=== PATIENT | male | born 1950 | race African-American/Black ===

== ENCOUNTER 2018-06-13 05:46 | Inpatient (IN) | payer MEDICARE, OTHER ==
[~2018-06-13] VITALS: Ht 177.8 cm; Wt 57.6 kg
[~2018-06-13 05:46] MED LIST: AMLODIPINE BESY10 MG ORAL; IBUPROFEN600 MG ORAL; METOPROLOL SUCC25 MG ORAL; VICODIN 5-5001 EACH PO; ZOCOR10 MG ORAL
[2018-06-13 05:50] VITALS: BP 98/70
[2018-06-13] MEDS ORDERED: Morphine Sulfate 2mg/ml Inj IVP ONE (06:00)
[2018-06-13] MEDS ORDERED: Sodium Chloride 500ML 500 ML IV ONE (06:00)
--- NOTE | 2018-06-13 06:02 | Emergency Room Report ---
History of Present Illness General Chief Complaint: Pain Source: Patient (Bronson Garnett DO) Present Illness HPI Patient presents by paramedics for report of left hip pain reports that he had a fall Yesterday afternoon at approximate 5:00 He reports that he was trying to contact someone for help however He was not able to do so until this morning Denies any chest pain denies any palpitation Denies any other weakness prior to the fall And provides a mechanical description of the fall Pain is worse with movement 8 out of 10 denies any back pain or head trauma (DesiBronson archer DO) Allergies: Coded Allergies: SHELLFISH DERIVED (Unverified Allergy, Unknown, 06/14/18) Uncoded Allergies: SHELLFISH (Allergy, Unknown, 06/13/18) Patient History Past Medical History: see triage record Pertinent Family History: none Reviewed Nursing Documentation: PMH: Agreed; PSxH: Agreed (Bronson Garnett DO) Nursing Documentation-PMH Past Medical History: No Stated History Hx Hypertension: Yes (DesieverardoBronson CRAWFORD) Review of Systems All Other Systems: negative except mentioned in HPI (Bronson Garnett DO) Physical Exam Vital Signs Date Time Temp Pulse Resp B/P (MAP) Pulse Ox O2 Delivery O2 Flow Rate FiO2 06/13/18 05:36 97.9 89 18 94/70 98 Room Air Sp02 EP Interpretation: reviewed, normal General Appearance: well appearing, no apparent distress Head: normocephalic, atraumatic Eyes: bilateral eye PERRL, bilateral eye EOMI ENT: hearing grossly normal, normal pharynx, TMs + canals normal, uvula midline Neck: full range of motion, supple, no meningismus, no bony tend Respiratory: lungs clear, normal breath sounds, no rhonchi, no respiratory distress, no retraction, no accessory muscle use Cardiovascular #1: normal peripheral pulses, regular rate, rhythm, no edema, no gallop, no JVD, no murmur Gastrointestinal: normal bowel sounds, non tender, soft, no mass, no organomegaly, non-distended, no guarding, no hernia, no pulsatile mass, no rebound Genitourinary: no CVA tenderness Musculoskeletal: other - Tender on palpation of the left hip area, not able to fully extend the hip secondary to pain Neurologic: oriented x3, responsive, 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 as tested, sensory intact Psychiatric: mood/affect normal Skin: normal color, no rash, warm/dry, palpation normal Lymphatic: normal inspection, no adenopathy (Bronson Garnett DO) Medical Decision Making Diagnostic Impression: Primary Impression: Hip fracture, left Qualified Codes: S72.002A - Fracture of unspecified part of neck of left femur , initial encounter for closed fracture ER Course Given the patient's history and presentation imaging study is obtained Patient also had extensive blood work Patient shows a complex left-sided hip fracture Further medically evaluated as well with cardiac evaluation Blood work is appropriate Patient has pain management Will be admitted for further inpatient care Orthopedics and medicine contacted Labs Test 06/13/18 08:05 06/14/18 06:30 06/14/18 09:56 White Blood Count 11.6 K/UL (4.8-10.8) 8.2 K/UL (4.8-10.8) Red Blood Count 3.62 M/UL (4.70-6.10) 3.17 M/UL (4.70-6.10) Hemoglobin 11.6 G/DL (14.2-18.0) 10.1 G/DL (14.2-18.0) Hematocrit 36.0 % (42.0-52.0) 31.1 % (42.0-52.0) Mean Corpuscular Volume 99 FL (80-99) 98 FL (80-99) Mean Corpuscular Hemoglobin 32.1 PG (27.0-31.0) 31.8 PG (27.0-31.0) Mean Corpuscular Hemoglobin Concent 32.2 G/DL (32.0-36.0) 32.4 G/DL (32.0-36.0) Red Cell Distribution Width 12.9 % (11.6-14.8) 12.5 % (11.6-14.8) Platelet Count 238 K/UL (150-450) 214 K/UL (150-450) Mean Platelet Volume 5.8 FL (6.5-10.1) 5.8 FL (6.5-10.1) Neutrophils (%) (Auto) 79.4 % (45.0-75.0) 71.4 % (45.0-75.0) Lymphocytes (%) (Auto) 11.2 % (20.0-45.0) 16.8 % (20.0-45.0) Monocytes (%) (Auto) 7.8 % (1.0-10.0) 9.7 % (1.0-10.0) Eosinophils (%) (Auto) 0.0 % (0.0-3.0) 0.9 % (0.0-3.0) Basophils (%) (Auto) 1.6 % (0.0-2.0) 1.2 % (0.0-2.0) Sodium Level 143 MMOL/L (136-145) 131 MMOL/L (136-145) Potassium Level 4.2 MMOL/L (3.5-5.1) 4.2 MMOL/L (3.5-5.1) Chloride Level 106 MMOL/L (98-107) 101 MMOL/L (98-107) Carbon Dioxide Level 21 MMOL/L (21-32) 25 MMOL/L (21-32) Anion Gap 16 mmol/L (5-15) 6 mmol/L (5-15) Blood Urea Nitrogen 19 mg/dL (7-18) 17 mg/dL (7-18) Creatinine 1.0 MG/DL (0.55-1.30) 0.9 MG/DL (0.55-1.30) Estimat Glomerular Filtration Rate > 60 mL/min (>60) > 60 mL/min (>60) Glucose Level 81 MG/DL (74-106) 85 MG/DL (74-106) Calcium Level 8.4 MG/DL (8.5-10.1) 8.2 MG/DL (8.5-10.1) Total Bilirubin 0.3 MG/DL (0.2-1.0) Aspartate Amino Transf (AST/SGOT) 22 U/L (15-37) Alanine Aminotransferase (ALT/SGPT) 20 U/L (12-78) Alkaline Phosphatase 52 U/L (46-116) Total Creatine Kinase 259 U/L (26-308) Creatine Kinase MB 1.2 NG/ML (0.0-3.6) Creatine Kinase MB Relative Index 0.4 Total Protein 6.2 G/DL (6.4-8.2) Albumin 2.2 G/DL (3.4-5.0) Globulin 4.0 g/dL Albumin/Globulin Ratio 0.6 (1.0-2.7) Prothrombin Time 9.9 SEC (9.30-11.50) Prothromb Time International Ratio 0.9 (0.9-1.1) Magnesium Level 1.7 MG/DL (1.8-2.4) Arterial Blood pH 7.460 (7.350-7.450) Arterial Blood Partial Pressure CO2 33.6 mmHg (35.0-45.0) Arterial Blood Partial Pressure O2 68.7 mmHg (75.0-100.0) Arterial Blood HCO3 23.6 mmol/L (22.0-26.0) Arterial Blood Oxygen Saturation 94.3 % (95-100) Arterial Blood Base Excess 0.2 (-2-2) Иван Test Positive (Bronson Garnett DO) ER Course Please see above note. Patient with IT hip fx. Still c/o pain. Analgesia repeated. Pain improved with fentanyl. EKG and labs reviewed. Discussed diagnosis, admission and plan for surgery Laboratory Tests Test 06/13/18 08:05 06/14/18 06:30 White Blood Count 11.6 K/UL (4.8-10.8) H 8.2 K/UL (4.8-10.8) Red Blood Count 3.62 M/UL (4.70-6.10) L 3.17 M/UL (4.70-6.10) L Hemoglobin 11.6 G/DL (14.2-18.0) L 10.1 G/DL (14.2-18.0) L Hematocrit 36.0 % (42.0-52.0) L 31.1 % (42.0-52.0) L Mean Corpuscular Volume 99 FL (80-99) 98 FL (80-99) Mean Corpuscular Hemoglobin 32.1 PG (27.0-31.0) H 31.8 PG (27.0-31.0) H Mean Corpuscular Hemoglobin Concent 32.2 G/DL (32.0-36.0) 32.4 G/DL (32.0-36.0) Red Cell Distribution Width 12.9 % (11.6-14.8) 12.5 % (11.6-14.8) Platelet Count 238 K/UL (150-450) 214 K/UL (150-450) Mean Platelet Volume 5.8 FL (6.5-10.1) L 5.8 FL (6.5-10.1) L Neutrophils (%) (Auto) 79.4 % (45.0-75.0) H 71.4 % (45.0-75.0) Lymphocytes (%) (Auto) 11.2 % (20.0-45.0) L 16.8 % (20.0-45.0) L Monocytes (%) (Auto) 7.8 % (1.0-10.0) 9.7 % (1.0-10.0) Eosinophils (%) (Auto) 0.0 % (0.0-3.0) 0.9 % (0.0-3.0) Basophils (%) (Auto) 1.6 % (0.0-2.0) 1.2 % (0.0-2.0) Sodium Level 143 MMOL/L (136-145) 131 MMOL/L (136-145) #L Potassium Level 4.2 MMOL/L (3.5-5.1) 4.2 MMOL/L (3.5-5.1) Chloride Level 106 MMOL/L (98-107) 101 MMOL/L (98-107) Carbon Dioxide Level 21 MMOL/L (21-32) 25 MMOL/L (21-32) Anion Gap 16 mmol/L (5-15) H 6 mmol/L (5-15) Blood Urea Nitrogen 19 mg/dL (7-18) H 17 mg/dL (7-18) Creatinine 1.0 MG/DL (0.55-1.30) 0.9 MG/DL (0.55-1.30) Estimate Glomerular Filtration Rate > 60 mL/min (>60) > 60 mL/min (>60) Glucose Level 81 MG/DL (74-106) 85 MG/DL (74-106) Calcium Level 8.4 MG/DL (8.5-10.1) L 8.2 MG/DL (8.5-10.1) L Total Bilirubin 0.3 MG/DL (0.2-1.0) Aspartate Amino Transferase (AST) 22 U/L (15-37) Alanine Aminotransferase (ALT) 20 U/L (12-78) Alkaline Phosphatase 52 U/L (46-116) Total Creatine Kinase 259 U/L (26-308) Creatine Kinase MB 1.2 NG/ML (0.0-3.6) Creatine Kinase MB Relative Index 0.4 Total Protein 6.2 G/DL (6.4-8.2) L Albumin 2.2 G/DL (3.4-5.0) L Globulin 4.0 g/dL Albumin/Globulin Ratio 0.6 (1.0-2.7) L Prothrombin Time 9.9 SEC (9.30-11.50) Prothrombin Time INR 0.9 (0.9-1.1) Magnesium Level 1.7 MG/DL (1.8-2.4) L (Davonte Tilley MD) EKG Diagnostic Results Rate: tachycardiac ST Segments: no acute changes (Davonte Tilley MD) Rhythm Strip Diag. Results EP Interpretation: yes Rate: 78 Rhythm: NSR, no PVC's, no ectopy (Bronson Garnett DO) EP Interpretation: yes Rhythm: no PVC's, no ectopy, other - Sinus tachycardia (Davonte Tilley MD) CT/MRI/US Diagnostic Results CT/MRI/US Diagnostic Results : Impression CT pelvicIMPRESSION: Comminuted impacted and displaced left intertrochanteric fracture. No dislocation. Soft tissue swelling/stranding about the outer hips bilaterally. Focal fluid collection in the subcutaneous region of the outer right hip, nonspecific. This may reflect evolving hematoma. Developing abscess difficult to entirely exclude in the appropriate clinical setting. Recommend clinical correlation and follow-up. (Bronson Garnett DO) Last Vital Signs Date Time Temp Pulse Resp B/P (MAP) Pulse Ox O2 Delivery O2 Flow Rate FiO2 06/13/18 05:36 97.9 89 18 94/70 98 Room Air Status: improved (Bronson Garnett DO) Status: improved (Davonte Tilley MD) Disposition: ADMITTED INPATIENT Condition: Serious Bronson Garnett DO Jun 13, 2018 06:02 Davonte Tilley MD Jun 13, 2018 07:16
[2018-06-13] MEDS ORDERED: Morphine Sulfate 4mg/ml Inj (IV/IM USE ONLY) IVP ONE (07:15)
[2018-06-13] MEDS ORDERED: fentaNYL 100 mcg/2 mL IV ONE (07:45)
--- NOTE | 2018-06-13 07:53 | Diagnostic Imaging Report ---
EXAM: CT Pelvis Without Intravenous Contrast CLINICAL HISTORY: PAIN TECHNIQUE: Axial computed tomography images of the pelvis without intravenous contrast. CTDI is 11.77 mGy and DLP is 320 mGy-cm. One or more of the following dose reduction techniques were used: automated exposure control, adjustment of the mA and/or kV according to patient size, use of iterative reconstruction technique. COMPARISON: No relevant prior studies available. FINDINGS: Bowel: Moderate retained stool in the rectum. Diverticulosis in the visualized sigmoid colon. No obstruction. No mucosal thickening. Appendix: No findings to suggest acute appendicitis. Intraperitoneal space: Unremarkable. No free air. No significant fluid collection. Bladder: Unremarkable. No stones. Reproductive: Unremarkable as visualized. Bones/joints: Comminuted impacted left intertrochanteric fracture with mild superior displacement. No dislocation. Narrowing of the hip joints bilaterally, right worse than left with marginal osteophyte formation. Degenerative changes in the visualized lower lumbar spine with disc space narrowing and endplate changes at L5-S1. Soft tissues: Small fat-containing inguinal hernia, left greater than right. Soft tissue stranding in the outer aspect of both hips likely soft tissue swelling. No discrete low density in the subcutaneous fat over the outer right hip which may reflect focal evolving hematoma. Recommend clinical correlation and follow-up to exclude developing fluid collection/abscess. Vasculature: Heavily calcified distal aorta and common iliac arteries. No lower abdominal aortic aneurysm. Lymph nodes: Unremarkable. No enlarged lymph nodes. IMPRESSION: Comminuted impacted and displaced left intertrochanteric fracture. No dislocation. Soft tissue swelling/stranding about the outer hips bilaterally. Focal fluid collection in the subcutaneous region of the outer right hip, nonspecific. This may reflect evolving hematoma. Developing abscess difficult to entirely exclude in the appropriate clinical setting. Recommend clinical correlation and follow-up.
[2018-06-13 08:00] VITALS: BP 116/75
[2018-06-13] MEDS ORDERED: PRINIVIL10 MG ORAL (08:18)
[2018-06-13] MEDS ORDERED: ASPIRIN-LOW81 MG ORAL (08:18)
[2018-06-13] MEDS ORDERED: MAGNESIUM OXID400 M1 ORAL (08:18)
[2018-06-13] MEDS ORDERED: ATORVASTATIN CA20 MG ORAL (08:18)
[2018-06-13 08:42] LABS: BASOPHILS % (AUTO) 1.6 % (0.0-2.0); HEMOGLOBIN 11.6 G/DL (14.2-18.0); LYMPHOCYTES % (AUTO) 11.2 % (20.0-45.0); MEAN CORPUSCULAR VOLUME 99 FL (80-99); MONOCYTES % (AUTO) 7.8 % (1.0-10.0); NEUTROPHILS % (AUTO) 79.4 % (45.0-75.0); PLATELET COUNT 238 K/UL (150-450); RED BLOOD COUNT 3.62 M/UL (4.70-6.10); RED CELL DISTRIBUTION WIDTH 12.9 % (11.6-14.8); WHITE BLOOD COUNT 11.6 K/UL (4.8-10.8)
[2018-06-13 09:02] LABS: ANION GAP 16 mmol/L (5-15); BLOOD UREA NITROGEN 19 mg/dL (7-18); CALCIUM 8.4 MG/DL (8.5-10.1); CARBON DIOXIDE 21 MMOL/L (21-32); CHLORIDE 106 MMOL/L (98-107); POTASSIUM 4.2 MMOL/L (3.5-5.1); SODIUM 143 MMOL/L (136-145)
[2018-06-13 09:12] LABS: ALANINE AMINOTRANSFERASE 20 U/L (12-78); ALBUMIN 2.2 G/DL (3.4-5.0); ALBUMIN/GLOBULIN RATIO 0.6 (1.0-2.7); ALKALINE PHOSPHATASE 52 U/L (46-116); ASPARTATE AMINO TRANSFERASE 22 U/L (15-37); BILIRUBIN,TOTAL 0.3 MG/DL (0.2-1.0); CKMB 1.2 NG/ML (0.0-3.6); CREATINE KINASE 259 U/L (26-308)
[2018-06-13 09:47] VITALS: BP 117/66
[2018-06-13] MEDS ORDERED: HydrALAZINE 25mg tab ORAL PRN (10:30)
[2018-06-13] MEDS ORDERED: Norco 5mg/325mg tab ORAL PRN (10:30)
[2018-06-13 12:00] VITALS: BP 124/79
[2018-06-13] MEDS: HYDROmorphone 1mg/ml Carpuject IVP PRN ×2 (13:21→21:56)
[2018-06-13] MEDS: Heparin 5000 units/ml inj SUBQ SCH ×2 (14:00→21:58)
[2018-06-13 16:00] VITALS: BP 131/72
--- NOTE | 2018-06-13 18:18 | History & Physical ---
History and Physical History & Physicial HISTORY AND PHYSICAL HPI Patient is a 68 year old man, presents by paramedics for report of left hip pain reports that he had a fall Noted to have comminutes left intratrochanteric hip fracture Denies any chest pain denies any palpitation Denies any other weakness prior to the fall And provides a mechanical description of the fall PMH: Hypertension, no h/o CAD Pain is worse with movement 8 out of 10 denies any back pain or head trauma Denies smoking history Allergies: Uncoded Allergies: SHELLFISH (Allergy, Unknown, 06/13/18) Patient History Past Medical History: see triage record Pertinent Family History: none Reviewed Nursing Documentation: PMH: Agreed; PSxH: Agreed Nursing Documentation-PMH Past Medical History: No Stated History Hx Hypertension: Yes Review of Systems All Other Systems: negative except mentioned in HPI Physical Exam Vital Signs noted Date Time Temp Pulse Resp B/P (MAP) Pulse Ox O2 Delivery O2 Flow Rate FiO2 06/13/18 05:36 97.9 89 18 94/70 98 Room Air Sp02 EP Interpretation: reviewed, normal General Appearance: well appearing, no apparent distress Head: normocephalic, atraumatic Eyes: bilateral eye PERRL, bilateral eye EOMI ENT: hearing grossly normal, normal pharynx, TMs + canals normal, uvula midline Neck: full range of motion, supple, no meningismus, no bony tend Respiratory: lungs clear, normal breath sounds, no rhonchi, no respiratory distress, no retraction, no accessory muscle use Cardiovascular #1: normal peripheral pulses, regular rate, rhythm, no edema, no gallop, no JVD, no murmur Gastrointestinal: normal bowel sounds, non tender, soft, no mass, no organomegaly, non-distended, no guarding, no hernia, no pulsatile mass, no rebound Genitourinary: no CVA tenderness Musculoskeletal: other - Tender on palpation of the left hip area, not able to fully extend the hip secondary to pain Neurologic: oriented x3, responsive, manager packaging III-XII nml as tested, sensory intact Psychiatric: mood/affect normal Skin: normal color, no rash, warm/dry, palpation normal Lymphatic: normal inspection, no adenopathy Medical Decision Making Diagnostic Impression: Hip fracture, left H/o Hypertension Plan: Admit Med Surg PPX 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 Results EP Interpretation: yes Rhythm: no PVC's, no ectopy, other - Sinus tachycardia Davonte Barros MD Jun 13, 2018 18:18
[2018-06-13 20:00] VITALS: BP 149/85
[2018-06-13] MEDS: Atorvastatin 20mg tab ORAL SCH (21:57)
[2018-06-14] VITALS (17 sets, daily range): BP systolic 90–157; BP diastolic 53–93
[2018-06-14] MEDS: Albuterol/Ipratropium 3ml neb HHN SCH ×4 (00:56→20:31)
[2018-06-14] MEDS: HYDROmorphone 1mg/ml Carpuject IVP PRN (05:40)
[2018-06-14] MEDS: Heparin 5000 units/ml inj SUBQ SCH ×3 (06:00→22:00)
[2018-06-14 07:07] LABS: BASOPHILS % (AUTO) 1.2 % (0.0-2.0); EOSINOPHILS % (AUTO) 0.9 % (0.0-3.0); HEMATOCRIT 31.1 % (42.0-52.0); HEMOGLOBIN 10.1 G/DL (14.2-18.0); LYMPHOCYTES % (AUTO) 16.8 % (20.0-45.0); MEAN CORPUSCULAR VOLUME 98 FL (80-99); MONOCYTES % (AUTO) 9.7 % (1.0-10.0); NEUTROPHILS % (AUTO) 71.4 % (45.0-75.0); PLATELET COUNT 214 K/UL (150-450); RED BLOOD COUNT 3.17 M/UL (4.70-6.10); RED CELL DISTRIBUTION WIDTH 12.5 % (11.6-14.8); WHITE BLOOD COUNT 8.2 K/UL (4.8-10.8)
[2018-06-14 07:09] LABS: INR 0.9 (0.9-1.1)
[2018-06-14 07:31] LABS: ANION GAP 6 mmol/L (5-15); BLOOD UREA NITROGEN 17 mg/dL (7-18); CALCIUM 8.2 MG/DL (8.5-10.1); CARBON DIOXIDE 25 MMOL/L (21-32); CHLORIDE 101 MMOL/L (98-107); CREATININE 0.9 MG/DL (0.55-1.30); POTASSIUM 4.2 MMOL/L (3.5-5.1); SODIUM 131 MMOL/L (136-145)
[2018-06-14] MEDS: Magnesium Oxide 400mg tab ORAL SCH (08:55)
[2018-06-14] MEDS: Metoprolol Succinate XL 50mg tab ORAL SCH (08:57)
[2018-06-14] MEDS: Aspirin EC 81mg tab ORAL SCH (09:00)
--- NOTE | 2018-06-14 09:24 | Diagnostic Imaging Report ---
EXAM: XR Chest, 1 View CLINICAL HISTORY: COUGH TECHNIQUE: Frontal view of the chest. COMPARISON: No relevant prior studies available. FINDINGS: Limitations: Exam is degraded by mild rotation. Lungs: Unremarkable. The lungs appear clear. No confluent pulmonary opacities. Pleural space: Unremarkable. The costophrenic angles are sharp. No visible pneumothorax. Heart: Unremarkable. No cardiomegaly. Mediastinum: Unremarkable. Bones/joints: Mild degenerative changes throughout the shoulders and visualized spine. Vasculature: Atherosclerotic calcifications are noted within the aortic arch. IMPRESSION: No acute findings.
--- NOTE | 2018-06-14 17:58 | Pulmonology Progress Note ---
Assessment/Plan Assessment/Plan PULMONARY PROGRESS NOTE HPI Patient is a 68 year old man, presents by paramedics for report of left hip pain reports that he had a fall Noted to have comminutes left intratrochanteric hip fracture Denies any chest pain denies any palpitation Denies any other weakness prior to the fall And provides a mechanical description of the fall PMH: Hypertension, no h/o CAD Pain is worse with movement 8 out of 10 denies any back pain or head trauma Patient has 30-40 year smoking history, denies documented Chronic Obstructive Pulmonary Disease, effort tolerance prior to fall few blocks - limited by leg pain, not shortness of breath Allergies: Uncoded Allergies: SHELLFISH (Allergy, Unknown, 06/13/18) Patient History Past Medical History: see triage record Pertinent Family History: none Reviewed Nursing Documentation: PMH: Agreed; PSxH: Agreed Nursing Documentation-PMH Past Medical History: No Stated History Hx Hypertension: Yes Review of Systems All Other Systems: negative except mentioned in HPI Physical Exam Vital Signs noted Date Time Temp Pulse Resp B/P (MAP) Pulse Ox O2 Delivery O2 Flow Rate FiO2 06/13/18 05:36 97.9 89 18 94/70 98 Room Air Sp02 EP Interpretation: reviewed, normal General Appearance: well appearing, no apparent distress Head: normocephalic, atraumatic Eyes: bilateral eye PERRL, bilateral eye EOMI ENT: hearing grossly normal, normal pharynx, TMs + canals normal, uvula midline Neck: full range of motion, supple, no meningismus, no bony tend Respiratory: lungs clear, normal breath sounds, no rhonchi, no respiratory distress, no retraction, no accessory muscle use Cardiovascular #1: normal peripheral pulses, regular rate, rhythm, no edema, no gallop, no JVD, no murmur Gastrointestinal: normal bowel sounds, non tender, soft, no mass, no organomegaly, non-distended, no guarding, no hernia, no pulsatile mass, no rebound Genitourinary: no CVA tenderness Musculoskeletal: other - Tender on palpation of the left hip area, not able to fully extend the hip secondary to pain Neurologic: oriented x3, responsive, bath mixer III-XII nml as tested, sensory intact Psychiatric: mood/affect normal Skin: normal color, no rash, warm/dry, palpation normal Lymphatic: normal inspection, no adenopathy Medical Decision Making Diagnostic Impression: Hip fracture, left H/o Hypertension Plan: Admit Med Surg PPX 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 Patient is cleared from Medical Standpoint for proposed hip surgery, suggest continued use of Duonebs post operatively Q6, O2 for sats 90- 96, monitor in high care area post operatively, DVT prophyllaxis per protocol, Incentive Spirometry and Early Mobilization EKG Diagnostic Results Rate: tachycardiac ST Segments: no acute changes ( Rhythm Strip Diag. Results EP Interpretation: yes Rhythm: no PVC's, no ectopy, other - Sinus tachycardia Subjective ROS Limited/Unobtainable: No Allergies: Coded Allergies: SHELLFISH DERIVED (Unverified Allergy, Unknown, 06/14/18) Uncoded Allergies: SHELLFISH (Allergy, Unknown, 06/13/18) Objective Last 24 Hour Vital Signs Date Time Temp Pulse Resp B/P (MAP) Pulse Ox O2 Delivery O2 Flow Rate FiO2 06/14/18 16:00 97.8 91 22 146/73 (97) 98 06/14/18 13:19 88 18 100 Room Air 06/14/18 13:09 89 18 98 Room Air 21 06/14/18 12:00 98.9 98 19 142/78 (99) 97 06/14/18 09:00 Room Air 06/14/18 08:57 106 155/88 06/14/18 08:55 106 155/88 06/14/18 08:00 99.6 106 19 155/88 (110) 91 06/14/18 04:00 98.8 99 18 140/80 (100) 93 06/14/18 01:24 99.8 06/14/18 01:00 99.8 06/14/18 00:00 100.9 102 18 121/79 (93) 93 06/13/18 21:00 Room Air 06/13/18 20:00 100.3 102 18 149/85 (106) 96 Laboratory Tests 06/14/18 06:30: White Blood Count 8.2, Red Blood Count 3.17L, Hemoglobin 10.1L, Hematocrit 31.1L , Mean Corpuscular Volume 98, Mean Corpuscular Hemoglobin 31.8H, Mean Corpuscular Hemoglobin Concent 32.4, Red Cell Distribution Width 12.5, Platelet Count 214, Mean Platelet Volume 5.8L, Neutrophils (%) (Auto) 71.4, Lymphocytes ( %) (Auto) 16.8L, Monocytes (%) (Auto) 9.7, Eosinophils (%) (Auto) 0.9, Basophils (%) (Auto) 1.2, Prothrombin Time 9.9, Prothromb Time International Ratio 0.9, Sodium Level 131#L, Potassium Level 4.2, Chloride Level 101, Carbon Dioxide Level 25, Anion Gap 6, Blood Urea Nitrogen 17, Creatinine 0.9, Estimat Glomerular Filtration Rate > 60, Glucose Level 85, Calcium Level 8.2L, Magnesium Level 1.7L 06/14/18 09:56: Arterial Blood pH 7.460H, Arterial Blood Partial Pressure CO2 33.6L, Arterial Blood Partial Pressure O2 68.7L, Arterial Blood HCO3 23.6, Arterial Blood Oxygen Saturation 94.3L, Arterial Blood Base Excess 0.2, Иван Test Positive Current Medications Medications (Trade) Dose Ordered Sig/Juliano Route PRN Reason Start Time Stop Time Status Last Admin Dose Admin Acetaminophen (Tylenol) 650 mg Q6H PRN ORAL Mild Pain/Temp > 100.5 06/13/18 10:30 07/13/18 10:29 06/14/18 00:54 Acetaminophen/ Hydrocodone Bitart ([place] 5/325) 1 tab Q6H PRN ORAL Moderate Pain (Pain Scale 4-6) 06/13/18 10:30 06/20/18 10:29 Albuterol/ Ipratropium (Albuterol/ Ipratropium) 3 ml Q6HRT HHN 06/14/18 01:00 06/19/18 00:59 06/14/18 13:09 Amlodipine Besylate (Norvasc) 10 mg DAILY ORAL 06/14/18 09:00 07/14/18 08:59 06/14/18 08:55 Aspirin (Ecotrin) 81 mg DAILY ORAL 06/14/18 09:00 07/14/18 08:59 Atorvastatin Calcium (Lipitor) 20 mg BEDTIME ORAL 06/13/18 21:00 07/13/18 20:59 06/13/18 21:57 Heparin Sodium (Porcine) (Heparin 5000 units/ml) 5,000 units Q8HR SUBQ 06/13/18 14:00 07/13/18 13:59 06/13/18 21:58 Hydralazine HCl (Apresoline) 25 mg Q6HR PRN ORAL For High Blood Pressure 06/13/18 10:30 07/13/18 10:29 Hydromorphone HCl (Dilaudid) 0.5 mg Q3H PRN IVP Severe Pain (Pain Scale 7-10) 06/13/18 10:30 06/20/18 10:29 06/14/18 05:40 Magnesium Oxide (Mag-Ox 400mg) 400 mg DAILY ORAL 06/14/18 09:00 07/14/18 08:59 06/14/18 08:55 Metoprolol Succinate (Toprol XL) 25 mg DAILY ORAL 06/14/18 09:00 07/14/18 08:59 06/14/18 08:57 Ondansetron HCl (Zofran) 4 mg Q6H PRN IVP Nausea & Vomiting 06/13/18 10:30 07/13/18 10:29 Davonte Barros MD Jun 14, 2018 17:58
[2018-06-14] MEDS ORDERED: Sodium Chloride 500ML 1,000 ML IV SCH ×2 (19:00→19:45)
[2018-06-14] MEDS ORDERED: Bupivacaine 0.5% Inj 30 ml vial INJ ONE (19:10)
[2018-06-14] MEDS ORDERED: cloNIDine 1000mcg/10ml inj ONE (19:10)
[2018-06-14] MEDS ORDERED: EPINEPHrine 1mg/1ml Amp ONE (19:12)
[2018-06-14] MEDS ORDERED: Bacitracin 50000 Units Vial ONE (19:13)
[2018-06-14] MEDS ORDERED: NeoSporin Gu Irrig 1ml Amp IRRIG ONE (19:13)
[2018-06-14] MEDS ORDERED: Bupivacaine w/Epi 0.25% 30ml Vial INJ ONE (19:13)
[2018-06-14] MEDS ORDERED: Lidocaine 1% Plain 30 ml INJ ONE (19:22)
[2018-06-14] MEDS ORDERED: Propofol 200mg/20ml IV ONE (19:22)
[2018-06-14] MEDS ORDERED: LR 1000ml 1,000 ML IVLG SCH (19:25)
--- NOTE | 2018-06-14 19:29 | Immediate Post-Op Evaluation ---
Immediate Post-Op Evalulation Immediate Post-Op Evalulation Procedure: L Hip ORIF Date of Evaluation: Jun 14, 2018 Time of Evaluation: 21:05 IV Fluids: 500 LR Blood Products: 0 Estimated Blood Loss: 25 Urinary Output: 0 Blood Pressure Systolic: 127 Blood Pressure Diastolic: 68 Pulse Rate: 84 Respiratory Rate: 16 O2 Sat by Pulse Oximetry: 100 Temperature (Fahrenheit): 99.1 Pain Score (1-10): 1 Nausea: No Vomiting: No Complications 0 Patient Status: awake, reacts, patent, none Hydration Status: adequate Dru Gram Ancef IV Given Within 1 Hr of Incision: Yes Time Given: 07:41 Wali Adams MD Jun 14, 2018 19:29
--- NOTE | 2018-06-14 19:29 | Anethesia Preoperative Eval ---
Anesthesia Pre-op PMH/ROS General Date of Evaluation: Jun 14, 2018 Time of Evaluation: 07:31 Anesthesiologist: Carlos ASA Score: ASA 3 - Emergency Mallampati Score Class I : Soft palate, uvula, fauces, pillars visible Class II: Soft palate, uvula, fauces visible Class III: Soft palate, base of uvula visible Class IV: Only hard plate visible Mallampati Classification: Class II Surgeon: Yash Diagnosis: L Hip Fx Surgical Procedure: ORIF L Hip Anesthesia History: none Family History: no anesthesia problems Allergies: Coded Allergies: SHELLFISH DERIVED (Unverified Allergy, Unknown, 06/14/18) Uncoded Allergies: SHELLFISH (Allergy, Unknown, 06/13/18) Medications: see eMAR Patient NPO?: Yes Past Medical History Cardiovascular: Reports: HTN Hematology/Immune: Reports: anemia Anesthesia Pre-op Phys. Exam Physician Exam Last Vital Signs Date Time Temp Pulse Resp B/P (MAP) Pulse Ox O2 Delivery O2 Flow Rate FiO2 06/14/18 16:00 97.8 91 22 146/73 (97) 98 06/14/18 13:19 Room Air 06/14/18 13:09 21 Constitutional: NAD Neurologic: CN 2-12 intact Cardiovascular: RRR Respiratory: CTA Gastrointestinal: S/NT/ND Airway Exam Mallampati Score: Class II MO: limited ROM: limited Teeth: missing, intact Anesthesia Pre-op A/P Labs Hematology Test 06/14/18 06:30 White Blood Count 8.2 K/UL (4.8-10.8) Red Blood Count 3.17 M/UL (4.70-6.10) L Hemoglobin 10.1 G/DL (14.2-18.0) L Hematocrit 31.1 % (42.0-52.0) L Mean Corpuscular Volume 98 FL (80-99) Mean Corpuscular Hemoglobin 31.8 PG (27.0-31.0) H Mean Corpuscular Hemoglobin Concent 32.4 G/DL (32.0-36.0) Red Cell Distribution Width 12.5 % (11.6-14.8) Platelet Count 214 K/UL (150-450) Mean Platelet Volume 5.8 FL (6.5-10.1) L Neutrophils (%) (Auto) 71.4 % (45.0-75.0) Lymphocytes (%) (Auto) 16.8 % (20.0-45.0) L Monocytes (%) (Auto) 9.7 % (1.0-10.0) Eosinophils (%) (Auto) 0.9 % (0.0-3.0) Basophils (%) (Auto) 1.2 % (0.0-2.0) Coagulation Test 06/14/18 06:30 Prothrombin Time 9.9 SEC (9.30-11.50) Prothromb Time International Ratio 0.9 (0.9-1.1) Chemistry Test 06/14/18 06:30 Sodium Level 131 MMOL/L (136-145) #L Potassium Level 4.2 MMOL/L (3.5-5.1) Chloride Level 101 MMOL/L (98-107) Carbon Dioxide Level 25 MMOL/L (21-32) Anion Gap 6 mmol/L (5-15) Blood Urea Nitrogen 17 mg/dL (7-18) Creatinine 0.9 MG/DL (0.55-1.30) Estimat Glomerular Filtration Rate > 60 mL/min (>60) Glucose Level 85 MG/DL (74-106) Calcium Level 8.2 MG/DL (8.5-10.1) L Magnesium Level 1.7 MG/DL (1.8-2.4) L Risk Assessment & Plan Assessment: ASA 3E Plan: GA, Spinal Status Change Before Surgery: No Pre-Antibiotics Dru Gram Ancef IV Given Within 1 Hr of Incision: Yes Time Given: 07:41 Wali Adams MD Jun 14, 2018 19:29
[2018-06-14] MEDS ORDERED: DiphenhydrAMINE 50mg/ml Inj IVP PRN (19:30)
[2018-06-14] MEDS ORDERED: LORazepam Inj 2mg/ml 1ml IV PRN (19:30)
[2018-06-14] MEDS ORDERED: Hydromorphone 0.5mg/0.5ml inj IVP PRN (19:30)
[2018-06-14] MEDS ORDERED: fentaNYL 100 mcg/2 mL IV PRN (19:30)
[2018-06-14] MEDS ORDERED: Atropine Sulfate 0.4mg/ml inj IVP PRN (19:30)
[2018-06-14] MEDS ORDERED: Meperidine 50mg/ml Inj(FOR RIGORS ONLY) IVP PRN (19:30)
[2018-06-14] MEDS ORDERED: HYDROcodone/Acetamin 7.5/325 tab ORAL PRN (19:30)
[2018-06-14] MEDS ORDERED: Norco 5mg/325mg tab ORAL PRN ×2 (19:30→19:45)
[2018-06-14] MEDS ORDERED: oxyCODONE HCL/Acetaminophen 5/325mg ORAL PRN (19:30)
[2018-06-14] MEDS ORDERED: Ketorolac 30mg Inj IV PRN ×2 (19:31)
[2018-06-14] MEDS ORDERED: NS Irrig 1000ml ONE (19:31)
[2018-06-14] MEDS ORDERED: LR 1000ml ONE (19:31)
[2018-06-14] MEDS ORDERED: Sterile Water Irrig 1000ml IRRIG ONE (19:31)
[2018-06-14] MEDS ORDERED: Midazolam 2mg/2ml Inj IVP PRN (19:32)
[2018-06-14] MEDS ORDERED: Dexamethasone 4mg/ml vial ONE (19:33)
[2018-06-14] MEDS ORDERED: Metoclopramide 10mg/2ml Inj IVP PRN (19:33)
[2018-06-14] MEDS ORDERED: Sodium Chloride 10ml vial INJ ONE (19:33)
[2018-06-14] MEDS ORDERED: Alfentanil 2ml Inj ONE (19:38)
--- NOTE | 2018-06-14 19:44 | Pre-Procedure Note/Attestation ---
Pre-Procedure Note/Attestation Complete Prior to Procedure Planned Procedure: left Procedure Narrative: hip orif Indications for Procedure Pre-Operative Diagnosis: left hip fracture Attestation I attest that I discussed the nature of the procedure; its benefits; risks and complications; and alternatives (and the risks and benefits of such alternatives ), prior to the procedure, with the patient (or the patient's legal career representative). I attest that, if there was a reasonable possibility of needing a blood transfusion, the patient (or the patient's legal career representative) was given the [facility] standardized written summary, pursuant to the [place] Blood Safety Act ([place] Health and Safety Code # 1645, as amended). I attest that I re-evaluated the patient just prior to the surgery and that there has been no change in the patient's H&P, except as documented below: Jamar Berrios MD Jun 14, 2018 19:44
[2018-06-14] MEDS ORDERED: Morphine Sulfate 2mg/ml Inj IVP PRN ×2 (19:45)
[2018-06-14] MEDS ORDERED: Milk of Magnesia 30ml Ud ORAL PRN (19:45)
--- NOTE | 2018-06-14 19:45 | Operative Note - PDOC ---
Operative Note Operative Note Pre-op Diagnosis: left hip fracture Procedure: same Post-op Diagnosis: same as pre-op plus Operative Findings: consistent w/pre-op dx studies Anesthesia: general Specimen: none Complications: none Condition: stable Estimated Blood Loss: none Implant(s) used?: Yes Jamar Berrios MD Jun 14, 2018 19:45
[2018-06-14] MEDS: Atorvastatin 20mg tab ORAL SCH (21:00)
--- NOTE | 2018-06-14 23:00 | Consultation ---
DATE OF CONSULTATION: 06/13/2018 CHIEF COMPLAINT: Left hip pain. HISTORY OF PRESENT ILLNESS: The patient is a pleasant 68-year-old gentleman, who sustained a mechanical fall and had significant left hip pain, unable to ambulate. He is brought to the emergency room. Imaging study showed left intertrochanteric hip fracture. Orthopedic consultation was obtained for further care and recommendation. Past medical history, surgical history, and medications reviewed from the intake chart. PHYSICAL EXAMINATION: GENERAL: The patient is alert and oriented. He is resting comfortably in exam bed. He has pain with internal and external rotation of the left hip. Posterior calf is soft. NEUROVASCULAR: Normal. IMAGING: Imaging study show left intertrochanteric hip fracture. DISCUSSION: At this point, we are going to proceed with open reduction and internal fixation of the left hip. He is going to be medically optimized by internal medicine doctor to make sure that we can proceed with surgery. Risks, limitations, expectations, and complications of the above procedure were discussed in detail. All questions addressed including postoperative physical therapy. He understands it will take 6 weeks for the fracture to heal. He still has some residual issues, which may need to be addressed or alternatives not really medically reasonable given that he will be in bedrest and potentially had more medical complications. Jamar Berrios M.D. DR: WILLARD JOB#: [id number] CC:
--- NOTE | 2018-06-14 23:00 | Operative Note - Dictated ---
DATE OF OPERATION: 06/14/2018 PREOPERATIVE DIAGNOSIS: Left two-part intertrochanteric fracture. POSTOPERATIVE DIAGNOSIS: Left two-part intertrochanteric fracture. PROCEDURE: Open reduction and internal fixation, left intertrochanteric hip fracture with intramedullary device. SURGEON: Jamar Berrios M.D. ANESTHESIA: Spinal. INDICATION FOR PROCEDURE: The patient is a pleasant female, who sustained a mechanical fall, diagnosed with two-part intertrochanteric fracture, and indicated for operative fixation. Risks, limitations, expectations, and complications of the procedure were discussed in detail. All questions were addressed. DESCRIPTION OF PROCEDURE: After informed consent was obtained, the patient was brought to the operating room. The patient was placed under spinal anesthesia. Left hip was reduced under fluoroscopic imaging. Left hip was prepped and draped in sterile manner. Time-out was performed. Posterolateral stab incision was then made. A guidewire was placed in the proximal aspect of the femur. after femur was opened up with an opening reamer, a short gamma nail was selected. A 90 mm cannulated screw was then placed at the neck-head junction. Once that was done, a 32.5 distal locking screw was placed. At this point, the instruments were removed. Portal sites were closed with 3-0 Monocryl sutures. Steri-Strips and a sterile dressing were applied. The patient was awoken and taken to recovery room with stable vital signs. ESTIMATED BLOOD LOSS: Minimal. COMPLICATIONS: None. SPECIMENS: None. IMPLANTS: Include 100 short gamma nail, 90 mm cannulated screw, 32.5 distal locking screw. Jamar Berrios M.D. DR: Marguerite JOB#: [id number] CC:
[2018-06-15] MEDS: D5 1/2NS w/KCl 20mEq 1,000 ML IV SCH ×2 (00:01→08:46)
[2018-06-15 00:22] VITALS: BP 133/74
[2018-06-15] MEDS: Albuterol/Ipratropium 3ml neb HHN SCH ×3 (01:30→19:28)
[2018-06-15] MEDS ORDERED: ceFAZolin sod 2 GM in D5W 110 ML IV SCH (03:30)
[2018-06-15 04:00] VITALS: BP 140/84
[2018-06-15] MEDS: Heparin 5000 units/ml inj SUBQ SCH ×3 (05:04→21:29)
[2018-06-15] MEDS ORDERED: Morphine Sulfate 2mg/ml Inj IVP PRN (07:15)
[2018-06-15 08:00] VITALS: BP 138/79
--- NOTE | 2018-06-15 08:32 | General Progress Note ---
Assessment/Plan Assessment/Plan Left two-part intertrochanteric fracture. Open reduction and internal fixation, left intertrochanteric hip fracture with intramedullary device hypertension postop pain PLAN 1. incentive spirometry 2. Lovenox 3. PT evaluation and therapy 4. Hydration 5. Pain management 6. discharge once stable with outpatient follow up. Subjective Allergies: Coded Allergies: SHELLFISH DERIVED (Unverified Allergy, Unknown, 06/14/18) Uncoded Allergies: SHELLFISH (Allergy, Unknown, 06/13/18) Subjective care noted post op care reviewed has some pain Objective Last 24 Hour Vital Signs Date Time Temp Pulse Resp B/P (MAP) Pulse Ox O2 Delivery O2 Flow Rate FiO2 06/15/18 08:14 Nasal Cannula 3.0 32 06/15/18 08:13 85 16 98 Nasal Cannula 3.0 32 06/15/18 04:00 97.7 86 18 140/84 (102) 100 06/15/18 01:33 85 16 Nasal Cannula 3.0 32 06/15/18 01:33 85 16 98 Nasal Cannula 3.0 32 06/15/18 01:33 Nasal Cannula 3.0 32 06/15/18 00:22 97.2 87 18 133/74 (93) 100 06/14/18 23:25 98.5 80 19 91/53 (66) 100 06/14/18 23:00 Nasal Cannula 2.0 06/14/18 22:55 98.6 80 20 90/53 (65) 100 06/14/18 22:25 98.6 89 19 138/80 (99) 100 06/14/18 21:55 98.7 91 19 134/75 (94) 100 06/14/18 21:40 98.7 91 20 103/70 (81) 100 06/14/18 21:40 98.8 89 21 124/79 100 Nasal Cannula 3 06/14/18 21:30 88 14 125/60 96 Nasal Cannula 3 06/14/18 21:20 92 15 131/72 97 Nasal Cannula 3 06/14/18 21:10 94 20 141/82 97 Nasal Cannula 3 06/14/18 20:59 83 21 107/63 97 Simple Mask 6 06/14/18 20:54 84 22 113/69 97 Simple Mask 6 06/14/18 20:52 84 16 100 06/14/18 20:49 99.1 88 21 127/68 97 Simple Mask 6 06/14/18 20:31 Room Air 06/14/18 20:31 Room Air 06/14/18 19:30 100.4 101 19 157/93 (114) 100 06/14/18 19:30 100.4 06/14/18 19:30 Room Air 06/14/18 16:00 97.8 91 22 146/73 (97) 98 06/14/18 13:19 88 18 100 Room Air 06/14/18 13:09 89 18 98 Room Air 21 06/14/18 12:00 98.9 98 19 142/78 (99) 97 06/14/18 09:00 Room Air 06/14/18 08:57 106 155/88 06/14/18 08:55 106 155/88 Intake and Output 06/14/18 06/15/18 19:00 07:00 Intake Total 1335 ml Output Total 450 ml 530 ml Balance -450 ml 805 ml Intake Oral 240 ml IV Total 1095 ml Output Urine Total 450 ml 505 ml Estimated Blood Loss 25 ml # Voids 2 Laboratory Tests 06/14/18 09:56: Arterial Blood pH 7.460H, Arterial Blood Partial Pressure CO2 33.6L, Arterial Blood Partial Pressure O2 68.7L, Arterial Blood HCO3 23.6, Arterial Blood Oxygen Saturation 94.3L, Arterial Blood Base Excess 0.2, Иван Test Positive Height (Feet): 5 Height (Inches): 10.00 Weight (Pounds): 127 Objective WDWN NAD clear breath sounds bilaterally without rhonchi or wheeze [id number] without MRG NABS nontender no HSM no CCE nonfocal dressing in place Vinod Ulloa MD Jun 15, 2018 08:32
[2018-06-15] MEDS: Metoprolol Succinate XL 50mg tab ORAL SCH (08:43)
[2018-06-15] MEDS: HYDROcodone/Acetamin 7.5/325 tab ORAL PRN ×2 (08:43→17:50)
[2018-06-15] MEDS: Aspirin EC 81mg tab ORAL SCH (08:44)
[2018-06-15] MEDS: Magnesium Oxide 400mg tab ORAL SCH (08:44)
[2018-06-15] MEDS: Docusate 100mg cap ORAL SCH ×3 (08:44→17:49)
--- NOTE | 2018-06-15 09:56 | 48 Hour Post Anesthesia Eval ---
Post Anesthesia Evaluation Procedure: L Hip ORIF Date of Evaluation: Jun 15, 2018 Time of Evaluation: 09:55 Blood Pressure Systolic: 136 0: 72 Pulse Rate: 74 Respiratory Rate: 20 Temperature (Fahrenheit): 97.6 O2 Sat by Pulse Oximetry: 98 Airway: patent Nausea: No Vomiting: No Pain Intensity: 3 Hydration Status: adequate Cardiopulmonary Status: stable Mental Status/LOC: patient returned to baseline Follow-up Care/Observations: n/a Post-Anesthesia Complications: none Follow-up care needed: N/A Jarred Brasher MD Jun 15, 2018 09:56
[2018-06-15 10:21] LABS: HEMATOCRIT 29.8 % (42.0-52.0); HEMOGLOBIN 9.8 G/DL (14.2-18.0); MEAN CORPUSCULAR VOLUME 97 FL (80-99); PLATELET COUNT 224 K/UL (150-450); RED BLOOD COUNT 3.06 M/UL (4.70-6.10); RED CELL DISTRIBUTION WIDTH 11.9 % (11.6-14.8); WHITE BLOOD COUNT 11.6 K/UL (4.8-10.8)
[2018-06-15 10:36] LABS: ANION GAP 7 mmol/L (5-15); BLOOD UREA NITROGEN 18 mg/dL (7-18); CALCIUM 8.4 MG/DL (8.5-10.1); CARBON DIOXIDE 25 MMOL/L (21-32); CHLORIDE 101 MMOL/L (98-107); POTASSIUM 4.6 MMOL/L (3.5-5.1); SODIUM 133 MMOL/L (136-145)
[2018-06-15 12:00] VITALS: BP 113/70
[2018-06-15] MEDS ORDERED: ceFAZolin 2gm/50ml Premix 50 ML IV SCH (13:00)
--- NOTE | 2018-06-15 13:15 | Diagnostic Imaging Report ---
Indication: Left hip fracture Comparison: None Findings: Intraoperative imaging with placement of a dynamic hip screw for reduction of a comminuted intratrochanteric fracture demonstrated on 5 fluoroscopic images. IMPRESSION: Intraoperative imaging
[2018-06-15 16:00] VITALS: BP 114/72
[2018-06-15 20:00] VITALS: BP 123/75
[2018-06-15] MEDS: Atorvastatin 20mg tab ORAL SCH (21:20)
[2018-06-16] VITALS: BP 116/74
[2018-06-16] MEDS: Albuterol/Ipratropium 3ml neb HHN SCH ×3 (00:15→13:11)
[2018-06-16 04:00] VITALS: BP 119/72
[2018-06-16] MEDS: Heparin 5000 units/ml inj SUBQ SCH ×2 (06:18→13:08)
[2018-06-16 08:00] VITALS: BP 128/76
[2018-06-16] MEDS: Docusate 100mg cap ORAL SCH ×2 (08:32→13:08)
[2018-06-16] MEDS: Aspirin EC 81mg tab ORAL SCH (08:32)
[2018-06-16] MEDS: Magnesium Oxide 400mg tab ORAL SCH (08:33)
[2018-06-16] MEDS: Metoprolol Succinate XL 50mg tab ORAL SCH (08:33)
[2018-06-16] MEDS: HYDROcodone/Acetamin 7.5/325 tab ORAL PRN ×2 (09:04→14:26)
[2018-06-16 12:00] VITALS: BP 120/70
--- NOTE | 2018-06-16 13:46 | General Progress Note ---
Assessment/Plan Assessment/Plan Left two-part intertrochanteric fracture. Open reduction and internal fixation, left intertrochanteric hip fracture with intramedullary device hypertension postop pain PLAN 1. incentive spirometry 2. Lovenox 3. PT evaluation and therapy 4. Hydration 5. Pain management 6. discharge for short term rehab impression, plan, and exam edited and reviewed in detail care discussed with RN. Subjective Allergies: Coded Allergies: SHELLFISH DERIVED (Unverified Allergy, Unknown, 06/14/18) Uncoded Allergies: SHELLFISH (Allergy, Unknown, 06/13/18) Subjective care noted post op care reviewed has some pain but controlled agrees to snf Objective Last 24 Hour Vital Signs Date Time Temp Pulse Resp B/P (MAP) Pulse Ox O2 Delivery O2 Flow Rate FiO2 06/16/18 13:19 88 18 99 Room Air 06/16/18 13:15 81 18 98 Room Air 21 06/16/18 12:00 98.2 80 18 120/70 (87) 98 06/16/18 09:00 Room Air 06/16/18 08:33 94 128/76 06/16/18 08:33 94 128/76 06/16/18 08:00 98.3 94 20 128/76 (93) 100 06/16/18 07:33 86 18 99 Room Air 06/16/18 07:30 86 18 98 Room Air 21 06/16/18 04:00 98.5 91 18 119/72 (88) 96 06/16/18 00:15 Room Air 21 06/16/18 00:15 Room Air 21 06/16/18 00:00 98.4 87 19 116/74 (88) 96 06/15/18 21:00 Room Air 06/15/18 20:00 98.6 89 20 123/75 (91) 96 06/15/18 19:40 83 16 100 Room Air 06/15/18 19:28 82 16 98 Room Air 21 06/15/18 16:00 98.1 85 18 114/72 (86) 96 Intake and Output 06/15/18 06/16/18 19:00 07:00 Intake Total 180 ml 240 ml Output Total 250 ml Balance -70 ml 240 ml Intake Oral 180 ml 240 ml Output Urine Total 250 ml # Voids 2 Height (Feet): 5 Height (Inches): 10.00 Weight (Pounds): 127 Objective WDWN NAD clear breath sounds bilaterally without rhonchi or wheeze [id number] without MRG NABS nontender no HSM no CCE nonfocal dressing in place Vinod Ulloa MD Jun 16, 2018 13:46
[2018-06-16] MEDS ORDERED: ACETAMINOPHEN325 M1 ORAL (15:49)
[2018-06-16] MEDS ORDERED: COLACE100 MG/10 ORAL (15:49)
[2018-06-16] MEDS ORDERED: FERROUS SULFAT325 MG ORAL (15:51)
[2018-06-16] MEDS ORDERED: DUONEB 0.5-3(2.53 ML HHN (15:51)
[2018-06-16] MEDS ORDERED: HEPARIN SO5000 UNIT2 SUBQ (15:52)
[2018-06-16] MEDS ORDERED: HYDRALAZINE HCL25 M1 ORAL (15:53)
[2018-06-16] MEDS ORDERED: HYDROCODON-ACE1 EA15 ORAL (15:54)
[2018-06-16] MEDS ORDERED: NORCO 7.5/3251 EA ORAL (15:55)
[2018-06-16] MEDS ORDERED: MILK OF MA400 MG/51 ORAL (15:58)
[2018-06-16] MEDS ORDERED: NICOTINE1 EAC2 TD (15:59)
[2018-06-16] MEDS ORDERED: NICODERM 7MG/24H1 EA TD (15:59)
[2018-06-16] MEDS ORDERED: TEMAZEPAM7.5 MG ORAL (16:01)
--- NOTE | 2018-06-16 18:26 | Cardiology Report ---
APPROVED REPORT EKG Measurement Heart [id number] [place] [id number] Sinus tachycardia Otherwise normal ECG
--- NOTE | 2018-06-17 11:38 | Discharge Summary ---
Discharge Summary Discharge Summary _ DATE OF ADMISSION: 06/13/2018 DATE OF DISCHARGE: 06/16/2018 REASON FOR ADMISSION: 68 years old male with past medical history of hypertension, presented to emergency room for evaluation, Patient sustained mechanical fall and was complaining of the left hip pain and inability to ambulate. Laboratory workup revealed mild leukocytosis WBC 11.6 ; anemia with hemoglobin 11.[address] of the pelvis showed comminuted impacted and displaced left intertrochanteric fracture, no dislocation. Patient admitted for further management with diagnoses of left hip intertrochanteric fracture CONSULTANTS: ortho surgery Dr. Berrios [facility] COURSE: Patient admitted to the floor. Patient started on the IV hydration. Pain management was addressed. Orthopedic surgery evaluation was requested. Patient subsequently undergone open reduction internal fixation of left intertrochanteric hip fracture with intramedullary device. Postoperatively pain management was addressed, and pain was controlled. DVT prophylaxis provided. Patient initially was on IV fluids until able to tolerate diet. Patient was working with physical therapist. Fall precautions maintained. Incentive spirometry provided and encourage while in the bed. Home medications were resumed. Blood pressure was closely monitored and remained stable. Supportive care provided. Bowel regimen instituted. Placement was found at the residential facility for short-term rehabilitation . Patient was stable for transfer FINAL DIAGNOSES: Left hip intertrochanteric fracture Status post open reduction internal fixation left intertrochanteric hip fracture with intramedullary device Hypertension Postoperative pain DISCHARGE MEDICATIONS: See Medication Reconciliation list. DISCHARGE INSTRUCTIONS: Patient was discharged to the residential facility. Follow up with medical doctor at the facility. I have been assigned to dictate discharge summary for this account. I was not involved in the patient's management. Prerna Trevino NP Jun 17, 2018 11:38
== END 2018-06-16 16:30 | DRG 482 ==
LOC: EDBD 05:46 → EMR 06:10 → 3E 06:37 → EDBEDREQ 07:44
PROC: 0QS706Z Reposition Left Upper Femur with Intramedullary Internal Fixation Device, Open Approach (ICD-10-PCS; principal; 2018-06-14 19:30)
DX: S72.142A Displaced intertrochanteric fracture of left femur, initial encounter for closed fracture (principal); W19.XXXA Unspecified fall, initial encounter; Y92.009 Unspecified place in unspecified non-institutional (private) residence as the place of occurrence of the external cause; I10 Essential (primary) hypertension; G89.18 Other acute postprocedural pain
CPT/HCPCS: 36415; 36600; 71045; 72192; 80048; 80053; 82550; 82553; 82803; 83735; 85007; 85025; 85610; 93005; 94003; 94150; 94640; 94664; 96374; 96375; 96376; 99285; J2405; J3490; J7620

== ENCOUNTER 2018-09-04 12:29 | Emergency (ER) | payer OTHER, MEDICARE ==
[~2018-09-04] VITALS: Ht 182.9 cm; Wt 77.1 kg
[~2018-09-04 12:29] MED LIST changes: +ACETAMINOPHEN325 M1 ORAL; +ASPIRIN-LOW81 MG ORAL; +ATORVASTATIN CA20 MG ORAL; +COLACE100 MG/10 ORAL; +DUONEB 0.5-3(2.53 ML HHN; +FERROUS SULFAT325 MG ORAL; +HEPARIN SO5000 UNIT2 SUBQ; +HYDRALAZINE HCL25 M1 ORAL; +HYDROCODON-ACE1 EA15 ORAL; +MAGNESIUM OXID400 M1 ORAL; +MILK OF MA400 MG/51 ORAL; +NICODERM 7MG/24H1 EA TD; +NICOTINE1 EAC2 TD; +NORCO 7.5/3251 EA ORAL; +PRINIVIL10 MG ORAL; +TEMAZEPAM7.5 MG ORAL
[2018-09-04 12:30] VITALS: BP 137/64
--- NOTE | 2018-09-04 12:30 | NUR ---
ED Nurse Note: brought in by ambulance from [facility] due to bilateral duplex lower extremity abnormal arterial results- per SNF staff note, no flow seen throughout the entire RLE arterial vasculature and no flow from the left mid SFA. A/Ox4. Pressure ulcer noted on the bilateral buttocks and sacral. HOB is elevated. No s/s of distress noted at this time.
[2018-09-04] MEDS ORDERED: FUROSEMIDE20 M1 ORAL (12:46)
[2018-09-04] MEDS ORDERED: METOPROLOL TART25 MG ORAL (12:47)
[2018-09-04] MEDS ORDERED: NEURONTIN100 MG ORAL (12:47)
--- NOTE | 2018-09-04 12:50 | NUR ---
ED Nurse Note: blood specimen sent down to the lab.
[2018-09-04 13:01] VITALS: BP 108/75
[2018-09-04 13:05] LABS: EOSINOPHILS % (AUTO) 2.3 % (0.0-3.0); HEMATOCRIT 38.4 % (42.0-52.0); HEMOGLOBIN 11.9 G/DL (14.2-18.0); LYMPHOCYTES % (AUTO) 28.3 % (20.0-45.0); MEAN CORPUSCULAR VOLUME 91 FL (80-99); MONOCYTES % (AUTO) 6.6 % (1.0-10.0); NEUTROPHILS % (AUTO) 60.7 % (45.0-75.0); PLATELET COUNT 267 K/UL (150-450); RED BLOOD COUNT 4.24 M/UL (4.70-6.10); RED CELL DISTRIBUTION WIDTH 13.7 % (11.6-14.8); WHITE BLOOD COUNT 9.5 K/UL (4.8-10.8)
[2018-09-04 13:11] LABS: ANION GAP 6 mmol/L (5-15); BLOOD UREA NITROGEN 24 mg/dL (7-18); CALCIUM 9.7 MG/DL (8.5-10.1); CARBON DIOXIDE 29 MMOL/L (21-32); CHLORIDE 105 MMOL/L (98-107); CREATININE 0.9 MG/DL (0.55-1.30); SODIUM 140 MMOL/L (136-145)
[2018-09-04 13:16] LABS: ALANINE AMINOTRANSFERASE 25 U/L (12-78); ALBUMIN 2.5 G/DL (3.4-5.0); ALBUMIN/GLOBULIN RATIO 0.5 (1.0-2.7); ALKALINE PHOSPHATASE 64 U/L (46-116); ASPARTATE AMINO TRANSFERASE 27 U/L (15-37); BILIRUBIN,TOTAL 0.3 MG/DL (0.2-1.0)
--- NOTE | 2018-09-04 14:05 | Emergency Room Report ---
History of Present Illness General Chief Complaint: General Complaint Source: Patient, Medical Record Present Illness HPI 68-year-old male with multiple medical problems, sent by Dr. Ulloa due to outpatient ultrasound that showed bilateral lower extremity with no arterial flow seen with near occlusion\severe high-grade stenosis. Patient reports his B /L LE pain and swelling have been going on for weeks, not worse in the past few days. He has heel ulcers which he requests I do not unbandage. Allergies: Coded Allergies: SHELLFISH DERIVED (Unverified Allergy, Unknown, 06/14/18) Uncoded Allergies: SHELLFISH (Allergy, Unknown, 06/13/18) Patient History Past Medical History: see triage record Reviewed Nursing Documentation: PMH: Agreed; PSxH: Agreed Nursing Documentation-PMH Past Medical History: No History, Except For Hx Hypertension: Yes - anemia Review of Systems All Other Systems: negative except mentioned in HPI Physical Exam Vital Signs Date Time Temp Pulse Resp B/P (MAP) Pulse Ox O2 Delivery O2 Flow Rate FiO2 09/04/18 12:15 97.3 94 17 130/62 99 Room Air Sp02 EP Interpretation: reviewed, normal General Appearance: no apparent distress, alert, non-toxic Head: normocephalic Eyes: bilateral eye normal inspection, bilateral eye PERRL, bilateral eye EOMI ENT: normal ENT inspection, hearing grossly normal, normal pharynx, no angioedema, normal voice, moist mucus membranes Neck: normal inspection, full range of motion, supple, supple/symm/no masses Respiratory: chest non-tender, lungs clear, normal breath sounds, chest symmetrical, palpation of chest normal Cardiovascular #1: normal peripheral pulses, regular rate, rhythm Cardiovascular #2: 2+ radial (R), 2+ radial (L) Gastrointestinal: normal inspection, non tender, soft, no mass, no guarding, no rebound Rectal: deferred Genitourinary: normal inspection, no CVA tenderness Musculoskeletal: back normal, no calf tenderness, other - heel ulcers bandaged , warm feet and toes B/L LE, unable to palpate DP pulses, but no cyanosis or coolness noted Neurologic: alert, responsive, wound care physician III-XII nml as tested, motor strength/tone normal - generalized weakness in all 4 extremities, speech normal Psychiatric: judgement/insight normal, memory normal, mood/affect normal Skin: normal color, no rash, warm/dry, normal turgor Lymphatic: no adenopathy Medical Decision Making Diagnostic Impression: Primary Impression: Peripheral arterial occlusive disease ER Course Patient sent for concerning findings on ultrasound, but clinically suspect chronic occlusion, do not suspect acute high-grade occlusion, as feet are warm, and patient is not having acute pain, I suspect there is some small amount of slow perfusing feet, although this likely does represent high-grade stenosis seen on ultrasound. Dr. Ulloa requests transfer to [facility] per recommendation of Dr. Castillo, since Dr. Barrettian unavailable. Dr. Ulloa to accept in transfer to [facility]. EKG Diagnostic Results EKG Time: 12:49 EP Interpretation: no stemi Rate: normal Rhythm: NSR ST Segments: no acute changes ASA given to the pt in ED: No Rhythm Strip Diag. Results Rhythm Strip Time: 13:55 EP Interpretation: yes Rate: 92 Rhythm: NSR, no PVC's, no ectopy Last Vital Signs Date Time Temp Pulse Resp B/P (MAP) Pulse Ox O2 Delivery O2 Flow Rate FiO2 09/04/18 12:30 97.3 89 17 137/64 100 Room Air Disposition: DISC/XFER TO [facility] Condition: Stable Referrals: Vinod Ulloa MD (PCP) CASS OLMOS M.D Sep 04, 2018 14:05
[2018-09-04 15:00] VITALS: BP 113/76
--- NOTE | 2018-09-04 15:00 | NUR ---
dr king called states transfer the patient to [facility] . he will be the attending spoke to nursing supervisor record press
--- NOTE | 2018-09-04 15:00 | NUR ---
ED Nurse Note: PT REQUESTED TO SIT IN THE CHAIR, NOTIFIED DR. SALINAS. PER DR. SALINAS, IT'S OK TO TRANSFER PT TO CHAIR. ASSISTED PT TO SIT ON THE CHAIR. DENIES PAIN THIS TIME.
--- NOTE | 2018-09-04 15:44 | NUR ---
face sheet and wilmer report faxed to nursibg supervisor [employer]
--- NOTE | 2018-09-04 17:30 | NUR ---
ED Nurse Note: BOWEL MOVEMENT X1. CLEANED PT. PT REQUESTED TO SIT IN THE CHAIR, ASSISTED PT TO THE CHAIR. NO SIGNS OF DISTRESS. WAITING FOR THE AMBULANCE TO BE TRANSFERED.
[2018-09-04 18:00] VITALS: BP 150/84
--- NOTE | 2018-09-04 19:32 | NUR ---
ED Nurse Note: telephone report given to SALVADOR Armstrong at [facility]. Pt remains stable.
[2018-09-04 22:04] VITALS: BP 146/112
--- NOTE | 2018-09-04 22:05 | NUR ---
ED Nurse Note: Patient being transferred to [facility] by [id number]. Patient report given to Shoaib FRANCO at [facility]. Patient AOx4, VSS, patient is ambulatory with assistance. Patient sent with all personal belongings. Patient transferred with IV access.
[2018-09-04 22:09] VITALS: BP 146/112
== END 2018-09-04 22:09 ==
LOC: EDBD 12:29 → EDBEDREQ 12:48 → EMR 13:02 → EDBEDREQ 13:20 → EMR 22:09 → CANBEDREQ 22:54
DX: I77.9 Disorder of arteries and arterioles, unspecified (principal); I10 Essential (primary) hypertension; Z91.013 Allergy to seafood
CPT/HCPCS: 36415; 80053; 84484; 85025; 85610; 85730; 87081; 99285